=== PATIENT | female | born 1985 | race American Indian/Alaskan Native ===

== ENCOUNTER 2020-11-02 06:22 | Inpatient (IN) | payer OTHER ==
[2020-11-02] MEDS ORDERED: ELECTROLYTE-148 SOLN 500 ML IV ONE (07:49)
[2020-11-02] MEDS ORDERED: CITRIC ACID/SODIUM CITRATE 30 ML UNIT-DOSE CUP PO ONE (07:49)
[2020-11-02] MEDS ORDERED: ONDANSETRON 4 MG/2 ML VIAL IVPUSH PRN (07:55)
[2020-11-02] MEDS ORDERED: morphine SULFATE/PF 0.5 MG/ML (2cc Syringe - QUVA) EP ONE (07:55)
[2020-11-02] MEDS ORDERED: ELECTROLYTE-148 SOLN 1,000 ML IV SCH (08:00)
[2020-11-02] MEDS ORDERED: morphine SULFATE/PF 0.5 MG/ML (2cc Syringe - QUVA) ONE (08:27)
[2020-11-02] MEDS ORDERED: ceFAZolin SODIUM 1 GM VIAL ONE (08:28)
[2020-11-02] MEDS ORDERED: OXYTOCIN 10 UNITS/ML VIAL ONE (08:52)
[2020-11-02] MEDS ORDERED: ONDANSETRON 4 MG/2 ML VIAL ONE (09:11)
[2020-11-02 09:32] VITALS: BMI 25.7
[2020-11-02 09:35] LABS: CORD BASE EXCESS -4.7 mmol/L (0-2); CORD HCO3 20.3 mmHg (20-29); CORD PCO2 37.5 mmHg (30-78); CORD pH 7.351 (7.14-7.44)
[2020-11-02 09:38] LABS: CORD HCO3 24.4 mmHg (20-29); CORD PCO2 55.3 mmHg (30-78); CORD pH 7.263 (7.14-7.44)
[2020-11-02] MEDS ORDERED: KETOROLAC TROMETHAMINE 30 MG/1 ML VIAL ONE (09:45)
[2020-11-02] MEDS ORDERED: IBUPROFEN 800 MG/8 ML IJ IVPB PRN (09:48)
[2020-11-02] MEDS ORDERED: oxyCODONE HCL 5 MG TABLET PO PRN (09:48)
[2020-11-02] MEDS ORDERED: METHYLERGONOVINE MALEATE 0.2 MG/1 ML AMP IM PRN (09:48)
[2020-11-02] MEDS ORDERED: MEPERIDINE HCL 50 MG/ML VIAL ONE (10:00)
[2020-11-02] MEDS ORDERED: OXYTOCIN 20 UNITS in 0.9% NS 20 UNIT/1,000 ML INFUS.BAG IV SCH (10:00)
[2020-11-02] MEDS ORDERED: MEPERIDINE HCL 25 MG/ML VIAL IVPUSH ONE (10:00)
[2020-11-02] MEDS ORDERED: ACETAMINOPHEN 1000 MG/100 ML VIAL (NON FORMULARY) IVPB ONE (10:01)
[2020-11-02] MEDS ORDERED: ACETAMINOPHEN INJECTION 100 ML IVPB ONE (11:27)
[2020-11-02] MEDS: IBUPROFEN 600 MG TABLET (FP) PO PRN (22:16)
[2020-11-02] MEDS: ACETAMINOPHEN 325 MG TABLET (FP) PO PRN (22:16)
[2020-11-02] MEDS: SIMETHICONE 80 MG TAB.CHEW (FP) PO PRN (22:17)
[2020-11-03] MEDS: ACETAMINOPHEN 325 MG TABLET (FP) PO PRN ×3 (04:47→18:21)
[2020-11-03] MEDS: IBUPROFEN 600 MG TABLET (FP) PO PRN ×3 (04:48→18:20)
[2020-11-03 07:41] LABS: BASO % 0.2 % (0-2.0); EOS % 1.7 % (0-4.5); HEMATOCRIT 28.6 % (32.4-45.2); HEMOGLOBIN 9.7 GM/dL (10.7-15.3); MCH 30.5 pg (25.7-33.7); MCHC 33.8 g/dl (32.0-36.0); MEAN CELL VOLUME 90.2 fl (80-96); MEAN PLT VOLUME 9.3 fl (7.5-11.1); MONO % 4.7 % (3.8-10.2); NEUT % 83.4 % (42.8-82.8); PLATELET COUNT 130 K/MM3 (134-434); RBC 3.17 M/mm3 (3.60-5.2); RDW 17.5 % (11.6-15.6); WHITE BLOOD COUNT 8.8 K/mm3 (4.0-10.0)
[2020-11-03] MEDS ORDERED: BISACODYL 10 MG SUPP.RECT RC PRN (09:48)
[2020-11-03] MEDS: PRENATAL VITAMINS W/ FOLIC ACID TABLET (FP) PO SCH (10:17)
[2020-11-03] MEDS: ENOXAPARIN NA (PORCINE) 40 MG/0.4 ML DISP.SYRIN SQ SCH (11:00)
[2020-11-03] MEDS: SIMETHICONE 80 MG TAB.CHEW (FP) PO PRN (12:56)
[2020-11-03] MEDS: FERROUS SO4 325 MG TABLET (FP) PO SCH (21:43)
[2020-11-03] MEDS: SENNOSIDES/DOCUSATE COMBO (SENNA PLUS) TABLET (UD) PO PRN (21:43)
[2020-11-04] MEDS: IBUPROFEN 600 MG TABLET (FP) PO PRN ×4 (00:23→21:14)
[2020-11-04] MEDS: ACETAMINOPHEN 325 MG TABLET (FP) PO PRN ×4 (00:24→21:15)
[2020-11-04] MEDS: SIMETHICONE 80 MG TAB.CHEW (FP) PO PRN ×3 (00:24→21:14)
[2020-11-04] MEDS: FERROUS SO4 325 MG TABLET (FP) PO SCH ×2 (11:35→21:14)
[2020-11-04] MEDS: ENOXAPARIN NA (PORCINE) 40 MG/0.4 ML DISP.SYRIN SQ SCH (11:35)
[2020-11-04] MEDS: PRENATAL VITAMINS W/ FOLIC ACID TABLET (FP) PO SCH (11:35)
[2020-11-04] MEDS: SENNOSIDES/DOCUSATE COMBO (SENNA PLUS) TABLET (UD) PO PRN (21:14)
[2020-11-05] MEDS: IBUPROFEN 600 MG TABLET (FP) PO PRN ×2 (06:11→12:20)
[2020-11-05] MEDS: ACETAMINOPHEN 325 MG TABLET (FP) PO PRN ×2 (06:11→12:20)
[2020-11-05] MEDS: PRENATAL VITAMINS W/ FOLIC ACID TABLET (FP) PO SCH (09:01)
[2020-11-05] MEDS: ENOXAPARIN NA (PORCINE) 40 MG/0.4 ML DISP.SYRIN SQ SCH (09:02)
[2020-11-05] MEDS: FERROUS SO4 325 MG TABLET (FP) PO SCH (09:02)
[2020-11-05 09:23] LABS: BASO % 0.2 % (0-2.0); EOS % 2.8 % (0-4.5); HEMATOCRIT 30.7 % (32.4-45.2); HEMOGLOBIN 10.2 GM/dL (10.7-15.3); LYMPH % 11.4 % (8-40); MCH 29.8 pg (25.7-33.7); MCHC 33.2 g/dl (32.0-36.0); MEAN CELL VOLUME 89.9 fl (80-96); MEAN PLT VOLUME 8.7 fl (7.5-11.1); MONO % 4.5 % (3.8-10.2); NEUT % 81.1 % (42.8-82.8); PLATELET COUNT 190 K/MM3 (134-434); RBC 3.41 M/mm3 (3.60-5.2); RDW 17.7 % (11.6-15.6); WHITE BLOOD COUNT 11.2 K/mm3 (4.0-10.0)
[2020-11-05 12:50] VITALS: BP 126/71; PULSE 86; TEMP 98.2
== END 2020-11-05 12:45 | disposition home or self-care (01) | DRG 540 ==
LOC: EDBD → JLDR 06:22 → J3N 13:08 → J3W 11-03 13:00
PROVIDERS: ADMIT Obstetrics & Gynecology; ATTEND Obstetrics & Gynecology
PROC: 10D00Z1 Extraction of Products of Conception, Low, Open Approach (ICD-10-PCS; principal; 2020-11-02)
PROC: 0DNW0ZZ Release Peritoneum, Open Approach (ICD-10-PCS; 2020-11-02)
DX: O34.219 Maternal care for unspecified type scar from previous cesarean delivery (principal); O99.62 Diseases of the digestive system complicating childbirth; K66.0 Peritoneal adhesions (postprocedural) (postinfection); Z3A.39 39 weeks gestation of pregnancy; Z37.0 Single live birth
CPT/HCPCS: 36415; 36600; 80053; 81003; 82803; 85025; 85610; 86780; 86850; 86900; 86901; 88307-TC; C9803; J0131; J2175; U0003; U0005